=== PATIENT | male | born 1975 ===

== ENCOUNTER 2016-09-15 11:49 | Emergency (ER) | payer OTHER, SELFPAY ==
[2016-09-15 11:56] VITALS: RESP 18; BMI 31.4
[2016-09-15 12:47] LABS: ADD MANUAL DIFF? NO
[2016-09-15 12:52] LABS: BASO # 0.03 K/mm3 (0.0-2.0); BASO % 0.3 % (0.0-3.0); EOS % 0.3 % (1.5-5.0); GRAN # 6.39 (1.4-6.5); GRAN % 74.3 % (50.0-68.0); HEMATOCRIT 43.2 % (42.0-52.0); LYMPH # 1.8 (1.2-3.4); LYMPH % 20.8 % (22.0-35.0); MEAN CELL VOLUME 89.4 fL (80.0-105.0); MEAN CORPUSCULAR HEMOGLOBIN 30.4 pg (25.0-35.0); MEAN PLATELET VOLUME 12.8 fl (7.0-11.0); MONO # 0.4 (0.1-0.6); MONO % 4.3 % (1.0-6.0); PLATELET COUNT 136 10^3/uL (120.0-450.0); RED CELL DISTRIBUTION WIDTH 13.2 % (11.5-14.5); WHITE BLOOD COUNT 8.6 10^3/ul (4.5-11.0)
[2016-09-15 13:03] LABS: ALB/GLOB RATIO 1.3 (1.1-1.8); ALKALINE PHOSPHATASE 68 U/L (38-133); ALT/SGPT 100 U/L (7-56); AST/SGOT 96 U/L (15-59); BILIRUBIN,TOTAL 0.6 mg/dL (0.2-1.3); BLOOD UREA NITROGEN 11 mg/dL (7-21); CALCIUM 9.3 mg/dL (8.4-10.5); CARBON DIOXIDE 27 mmol/L (21-33); CHLORIDE 102 mmol/L (98-107); GFR AFRICAN-AMERICAN > 60; GLUCOSE,RANDOM 131 mg/dL (70-110); POTASSIUM 4.5 mmol/L (3.6-5.0); SODIUM 139 mmol/L (132-148); TOTAL PROTEIN 7.9 g/dL (5.8-8.3)
[2016-09-15 13:04] LABS: INR 0.97 (0.93-1.08); PARTIAL THROMBOPLASTIN TIME 24.5 Seconds (23.7-30.8)
--- NOTE | 2016-09-15 13:34 | CT ---
PROCEDURE: CT HEAD WITHOUT CONTRAST. HISTORY: syncope COMPARISON: None available. TECHNIQUE: Axial computed tomography images were obtained through the head/brain without intravenous contrast. Radiation dose: Total exam DLP = 724 mGy-cm. This CT exam was performed using one or more of the following dose reduction techniques: Automated exposure control, adjustment of the mA and/or kV according to patient size, and/or use of iterative reconstruction technique. FINDINGS: HEMORRHAGE: No intracranial hemorrhage. BRAIN: No mass effect or edema. No atrophy or chronic microvascular ischemic changes. VENTRICLES: Unremarkable. No hydrocephalus. CALVARIUM: Unremarkable. PARANASAL SINUSES: Unremarkable as visualized. No significant inflammatory changes. MASTOID AIR CELLS: Unremarkable as visualized. No inflammatory changes. OTHER FINDINGS: None. IMPRESSION: Normal CT of the Head.
[2016-09-15 13:43] LABS: TROPONIN I < 0.01 ng/mL
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
--- NOTE | 2016-09-15 14:20 | RAD ---
PROCEDURE: Left Wrist Radiographs. HISTORY: fall COMPARISON: None. FINDINGS: BONES: Normal. No fracture. JOINTS: Normal. No dislocation. SOFT TISSUES: Normal. OTHER FINDINGS: None. IMPRESSION: Normal left wrist radiographs.
--- NOTE | 2016-09-15 14:20 | RAD ---
PROCEDURE: Left Hand Radiographs. HISTORY: fall COMPARISON: None. FINDINGS: BONES: Normal. No fracture. JOINTS: Normal. No osteoarthritic changes. SOFT TISSUES: Normal. OTHER FINDINGS: None. IMPRESSION: Normal left hand radiographs.
--- NOTE | 2016-09-15 14:21 | RAD ---
HISTORY: cough COMPARISON: No prior. FINDINGS: LUNGS: No active pulmonary disease. PLEURA: No significant pleural effusion identified, no pneumothorax apparent. CARDIOVASCULAR: Normal. OSSEOUS STRUCTURES: No significant abnormalities. VISUALIZED UPPER ABDOMEN: Normal. OTHER FINDINGS: None. IMPRESSION: No active disease.
[2016-09-15 15:31] VITALS: O2SAT 99
[2016-09-15] MEDS ORDERED: Sodium Chloride 0.9% 2,000 ML IV STA (16:23)
[2016-09-15 18:47] VITALS: BP 115/72; PULSE 81; TEMP 98.1
--- NOTE | 2016-09-16 02:08 | CARD ---
APPROVED REPORT EKG Measurement Heart [id number] <Conclusion> Normal sinus rhythm Normal ECG
== END 2016-09-15 18:50 | disposition home or self-care (01) ==
LOC: ED 11:49
DX: R55 Syncope and collapse (principal)
CPT/HCPCS: 70450; 71010; 73110; 73130; 80053; 82550; 82553; 83615; 84484; 85025; 85610; 85730; 93005; 96360; 96361; 99285; J7040